=== PATIENT | female | born 1965 | race Caucasian/White ===

== ENCOUNTER 2018-01-06 10:51 | Outpatient (REF) | payer MEDICAID, SELFPAY ==
--- NOTE | 2018-01-06 10:10 | PAPFT_PTH ---
PATIENT: Fara Kamara LOC: [facility] U#:[id number] AGE/SX: 52/F ROOM: RE01/06/[address]: Romina Laureano MD : [id number] BED: DIS: 01/06/2018 SPEC #: [id number] RECD: 01/06/18 12:49 STATUS: FLYNN REQ #: [id number] BRII: 01/06/18 10:[address]: Romina Laureano DEPT: [facility] Cytology RECD BY: Magdalena Dhaliwal ENTERED: 01/06/18 12:49 SP TYPE: PAPFT OTHR DR: Lexy Sparks MD Tissues: 1 - CX/ENDOCX FOR PAP SMEARS Procedures: PAP THIN PREP/UVM Screening HPV DNA PROBE Comments:
== END 2018-01-06 11:11 ==
LOC: LBN 10:51
PROVIDERS: PCP Family Medicine; Visit Provider Obstetrics & Gynecology
DX: Z12.4 Encounter for screening for malignant neoplasm of cervix (principal); Z11.51 Encounter for screening for human papillomavirus (HPV)
CPT/HCPCS: 88142; 87624

== ENCOUNTER 2018-09-02 08:43 | Outpatient (CLI) | payer MEDICAID, SELFPAY ==
[2018-09-02 13:12] LABS: ALT 31 U/L (12-78); AST 13 U/L (15-37); Albumin 3.7 g/dL (3.4-5.0); Alkaline Phosphatase 90 U/L (46-116); Anion Gap 10.2 mmol/L (3-11); BUN 10 mg/dL (7-18); Bilirubin, Total 0.4 mg/dL (0.2-1.0); CO2 26.8 mmol/L (21.0-32.0); CREATININE 0.98 mg/dL (0.55-1.02); Calcium 8.9 mg/dL (8.5-10.1); Chloride 104 mmol/L (98-107); Estimated GFR 58.92 (mL/min/1.73m2); Glucose 115 mg/dL (70-100); Magnesium 1.9 mg/dL (1.8-2.4); Potassium 4.1 mmol/L (3.5-5.1); Sodium 141 mmol/L (136-145); Total Protein 6.6 g/dL (6.4-8.2)
== END 2018-09-02 09:03 ==
PROVIDERS: PCP Family Medicine; Visit Provider Family Medicine
DX: K21.9 Gastro-esophageal reflux disease without esophagitis (principal)
CPT/HCPCS: 36415; 80053; 83735

== ENCOUNTER 2018-09-14 00:57 | Outpatient (CLI) | payer MEDICAID, SELFPAY ==
--- NOTE | 2018-09-14 11:57 | DI.MAMMO_ITS ---
SYMPTOM/DIAGNOSIS: SCREENING, Z12.31 MAMMOGRAMS: Mammograms were interpreted according to the usual protocol including computer analysis with CAD system, tomosynthesis and C view imaging. Comparison with prior examinations. Breast density B. No suspicious masses or microcalcifications are seen. There is no definite evidence of malignancy. IMPRESSION: Negative mammogram. Routine screening is recommended. Category I. MQSA ASSESSMENT OF FINDINGS: Negative. Category 1. Patient will receive a letter notifying them of these results. BI-RADS category B. There are scattered areas of fibroglandular density.
== END 2018-09-14 01:17 ==
PROVIDERS: PCP Family Medicine; Visit Provider Family Medicine
DX: Z12.31 Encounter for screening mammogram for malignant neoplasm of breast (principal)
CPT/HCPCS: 77063; 77067

== ENCOUNTER 2020-10-26 01:05 | Outpatient (CLI) | payer MEDICAID, SELFPAY ==
--- NOTE | 2020-10-26 07:45 | DI.MAMMO_ITS ---
Exam(s) MAMMO SCREENING EXAM: MAMMO SCREENING CLINICAL HISTORY: screening,z12.39 TECHNIQUE: Mammograms were interpreted according to the usual protocol including computer analysis w [employer] CAD system, tomosynthesis and C-view imaging. COMPARISON: 2011 through 2018 FINDINGS: The breasts are composed of scattered fibroglandular densities, Breast Density category B. No suspicious masses or suspicious microcalcifications are seen. No skin thickening or abnormal axillary lymph nodes are seen. There has been no significant change from prior exams. IMPRESSION: BI-RADS Category 1, Negative mammogram Yearly screening mammography is recommended. Breast Density - Category B, scattered fibroglandular densities. A negative radiographic report should not delay biopsy if a dominant or clinically suspicious mass is present. Up to ten percent of cancers are not identified on mammography. A negative report may reinforce clinical impression. Adenosis and dense breasts may obscure an underlying neoplasm. False positive reports average 6 to 10%. Patient will receive a letter notifying them of these results.
== END 2020-10-26 01:25 ==
PROVIDERS: PCP Family Medicine; Visit Provider Family Medicine
DX: Z12.31 Encounter for screening mammogram for malignant neoplasm of breast (principal)
CPT/HCPCS: 77063; 77067

== ENCOUNTER 2020-10-27 01:51 | Outpatient (CLI) | payer MEDICAID, SELFPAY ==
[2020-10-27 12:51] LABS: ALT 40 U/L (14-59); AST 18 U/L (15-37); Albumin 3.9 g/dL (3.4-5.0); Alkaline Phosphatase 90 U/L (46-116); BUN 8 mg/dL (7-18); Bilirubin, Total 0.5 mg/dL (0.2-1.0); CREATININE 0.9 mg/dL (0.55-1.02); Calcium 9.1 mg/dL (8.5-10.1); Calculated LDL 158 mg/dL (<100); Chloride 103 mmol/L (98-107); Cholesterol 229 mg/dL (<200); Glucose 109 mg/dL (74-106); HDL Cholesterol 39 mg/dL (40-60); Potassium 4.6 mmol/L (3.5-5.1); Sodium 139 mmol/L (136-145); TSH 1.85 uIU/mL (0.36-3.74); Total Protein 6.9 g/dL (6.4-8.2); Triglyceride 163 mg/dL (<150)
== END 2020-10-27 01:52 | disposition home or self-care (01) ==
LOC: LOS 01:51
PROVIDERS: PCP Family Medicine; Visit Provider Family Medicine
DX: R53.83 Other fatigue (principal); E83.42 Hypomagnesemia; E66.9 Obesity, unspecified
CPT/HCPCS: 36415; 80053; 80061; 83735; 84443

== ENCOUNTER → 2021-10-09 01:00 | Outpatient (CLI) | payer MEDICAID, SELFPAY ==
--- NOTE | 2021-10-09 07:15 | DI.RAD_ITS ---
Exam(s) XR KNEE LT 3V AP,LAT,MARY EXAM: XR KNEE LT 3V AP,LAT,MARY CLINICAL HISTORY: LT KNEE PAIN, M25.562. TECHNIQUE: 2D digital imaging was performed. COMPARISON: MR MRI R LOWER JOINT WO CONT from 11/08/2013 CR XR KNEE RT 3V AP,LAT,MARY from 10/09/2021 FINDINGS: 3 views No evidence of fracture nor prominent joint effusion. There does appear to be some increased density in the quadriceps fat pad above the patella in behind the distal quadriceps tendon, possibly signifi cant. No abnormal density seen in the anterior intra-articular Hoffa fat pad No joint space narrowing. No osteochondral defects. No significant osseous lesions. IMPRESSION: Subtle findings as described above. DATA REPOSITORY: RADIATION DOSE DELIVERED:
--- NOTE | 2021-10-09 07:15 | DI.RAD_ITS ---
Exam(s) XR KNEE RT 3V AP,LAT,MARY EXAM: XR KNEE RT 3V AP,LAT,MARY CLINICAL HISTORY: RT KNEE PAIN, M25.5661. TECHNIQUE: 2D digital imaging was performed. COMPARISON: MR MRI R LOWER JOINT WO CONT from 11/08/2013 FINDINGS: 3 views Evidence of ACL surgery. No fracture but there does appear to be a small joint effusion. Degenerati ve changes noted in the medial lateral compartments. Bone density normal. IMPRESSION: Previous ACL surgery. Significant osteoarthritic degenerative changes DATA REPOSITORY: RADIATION DOSE DELIVERED:
== END ==
PROVIDERS: Visit Provider Nurse Practitioner Family
DX: M17.11 Unilateral primary osteoarthritis, right knee (principal); M25.562 Pain in left knee; M25.461 Effusion, right knee
CPT/HCPCS: 73562

== ENCOUNTER 2022-01-28 14:11 | Outpatient (CLI) | payer MEDICAID, SELFPAY ==
--- NOTE | 2022-01-28 13:45 | DI.RAD_ITS ---
Exam(s) XR LUMBAR SPINE AP, LAT EXAM: XR LUMBAR SPINE AP, LAT CLINICAL HISTORY: eval LBP and notable lordosis. TECHNIQUE: 2D digital imaging was performed. Five views. COMPARISON: No exams were available for comparison FINDINGS: BONES: No fracture or destructive lesion. Vertebral body heights are maintained. There are small end plate osteophytes. Facet hypertrophy identified at L4-5 and L5-S1.. DISKS: Intervertebral disc spaces are maintained. ALIGNMENT: Lumbar spinal alignment is within normal limits. SOFT TISSUE: Aortic calcification. IMPRESSION: Facet degenerative changes at L4-5 and L5-S1 DATA REPOSITORY: RADIATION DOSE DELIVERED:
== END 2022-01-28 14:12 | disposition home or self-care (01) ==
LOC: DIORS 14:12
PROVIDERS: PCP Nurse Practitioner Family; Referring Provider Nurse Practitioner Family; Visit Provider Student in an Organized Health Care Education/Training Program
DX: M54.59 Other low back pain (principal); M47.817 Spondylosis without myelopathy or radiculopathy, lumbosacral region; M40.47 Postural lordosis, lumbosacral region
CPT/HCPCS: 72100

== ENCOUNTER 2022-04-01 09:29 | Outpatient (CLI) | payer MEDICAID, SELFPAY ==
--- NOTE | 2022-04-01 07:45 | DI.RAD_ITS ---
Exam(s) XR PAIN CLINIC LUMBAR SP 2V EXAM: XR PAIN CLINIC LUMBAR SP 2V CLINICAL HISTORY: Dx: Lumbar Spondylosis TECHNIQUE: 2D and realtime digital imaging was performed. CONTRAST MATERIAL: Refer to procedure report. COMPARISON: No exams were available for comparison FINDINGS: Fluoroscopy was provided for Dr. Adan during the performance of a lumbar medial branch block. Please refer to the procedure report for complete details. Ka,r=26.3 mGy IMPRESSION:
[2022-04-01 09:56] VITALS: BP 149/98; PULSE 94; RESP 20; TEMP 36.6; O2SAT 96
--- NOTE | 2022-04-01 10:49 | PDOC.PAIN ---
Date of service: 04/01/22 Time of Service: 10:50 Pain Clinic Procedure Note Procedure Note Procedure Note: Lumbar/Sacral Medial Branch Blocks Fara Kamara has been referred to the [facility] for lumbar/sacral medial branch blocks. Pre-operative diagnosis: lumbar spondylosis Post-operative diagnosis: same as above COMMENTS: patient was evaluated by Dr Berger in clinic for chronic axial back pain, facet mediated with positive lumbar extension reproducing patient's symptoms. Patient was interviewed and the medical record reviewed. There were no medical, pharmacologic, radiographic or other structural contraindications to attempting fluoroscopically guided local anesthetic lumbar/sacral medial branch blocks. Risks and expected side effects as well as potential benefit of the procedure were reviewed and voiced concerns addressed. The printed consent form was signed and witnessed. Standard time-out procedure was performed. Patient was placed in the prone position on the fluoroscopy table and automated blood pressure cuff and pulse oximeter applied. The skin entry points for approaching the anatomic target points of the segmental medial branches of bilateral L3, L4, L5-DR were identified with anfluoroscopy and marked. Following thorough Chlorhexadine preparation of the skin and draping and 1% lidocaine infiltration of the skin entry points and subcutaneous tissues, a 22 gauge 5 spinal needle was placed under fluoroscopic guidance down on to the target point for each respective segmental medial branch.Position was confirmed in A/P, oblique and lateral views with 0.25ml of omnipaque 240. Coult be this method 0.5ml 0.5% Bupivacaine was injected. Vital signs were stable throughout the procedure and were as recorded in the docflowsheet by the nursing staff. Follow up plans and appointments were discussed and was instructed to keep careful note of how the usual pain was modified by these injections. Specifically was asked to keep a pain diary for the next 24 hours using a numeric pain scale of 0-10 and report these results at the follow-up visit. Post procedure instruction was given as documented in the nursing documentation and having met discharge criteria. Patient was discharged from the [facility]. Based on the medial branches blocked today, if the patient has adequate relief and we are able to proceed to radiofrequency ablation, the treatment should result in the denervation of the bilateral L4/5 and L5/S1. We would expect to denervate a total of 4 facets during the radiofrequency ablation. COMMENTS: patient tolerated procedure well. Pre-procedure pain level 10/10. Post-procedure pain level 4/10. Ephraim Adan MD Pain Management CC: Shelly Velazquez NP, Ibrahima
[2022-04-01] MEDS: Omnipaque 240 MG/ML 50 ML BTL IJ (11:23)
[2022-04-01] MEDS: Bupivacaine 0.5% Pres-Free 10 ML VIAL IJ (11:24)
[2022-04-01 11:25] VITALS: BP 148/98; PULSE 91; RESP 14; O2SAT 97
== END 2022-04-01 09:30 | disposition home or self-care (01) ==
LOC: PC 09:29
PROVIDERS: PCP Nurse Practitioner Family; Visit Provider Internal Medicine
DX: M47.816 Spondylosis without myelopathy or radiculopathy, lumbar region (principal)
CPT/HCPCS: 64493; 64494; 72100; Q9967

== ENCOUNTER 2022-05-14 01:16 | Outpatient (CLI) | payer MEDICAID, SELFPAY ==
--- NOTE | 2022-05-14 07:45 | DI.MRI_ITS ---
Exam(s) MR LUMBAR SPINE WO EXAM: MR LUMBAR SPINE WO CLINICAL HISTORY: Low back pain of unknown origin, Normal neuro,m54.50. TECHNIQUE: Multiplanar multisequence MRI of the Lumbar spine was performed. COMPARISON: CR XR LUMBAR SPINE AP, LAT from 01/28/2022 FINDINGS: Bones: The last intervertebral disc space is designated the L5/S1 level for the numbering purpose of this examination. The vertebral body heights are well maintained. Alignment is satisfactory. The si gnal characteristics are unremarkable. Cord: The conus tip ends at the T12 level. It is of normal size and signal intensity. T12-L1: No disc herniations or bulges are present. No central spinal canal or neural foraminal stenos is. L1-2: No disc herniations or bulges are present. No central spinal canal or neural foraminal stenosis . L2-3: No disc herniations or bulges are present. No central spinal canal or neural foraminal stenosis . L3-4: No disc herniations or bulges are present. No central spinal canal or neural foraminal stenosis . L4-5: No disc herniations or bulges are present. No central spinal canal or neural foraminal stenosis .There are degenerative changes of the facets. L5-S1: No disc herniations or bulges are present. No central spinal canal or neural foraminal stenosi s.There are degenerative changes of the facets. Soft tissues: The visualized SI joints and sacrum are well maintained. The paraspinal soft tissues ar e unremarkable. IMPRESSION: Degenerative changes in the lumbar spine but no evidence of central spinal canal or neural foraminal stenosis. DATA REPOSITORY:
== END 2022-05-14 01:36 ==
LOC: DI 01:16
PROVIDERS: PCP Nurse Practitioner Family; Visit Provider Preventive Medicine Occupational Medicine
DX: M54.59 Other low back pain (principal); M47.817 Spondylosis without myelopathy or radiculopathy, lumbosacral region
CPT/HCPCS: 72148

== ENCOUNTER 2022-09-16 07:39 | Outpatient (CLI) | payer MEDICAID, SELFPAY ==
--- NOTE | 2022-09-16 07:00 | DI.RAD_ITS ---
Exam(s) XR PAIN CLINIC LUMBAR SP 2V EXAM: XR PAIN CLINIC LUMBAR SP 2V CLINICAL HISTORY: Dx: Low back pain TECHNIQUE: 2D and realtime digital imaging was performed. CONTRAST MATERIAL: Refer to procedure report. COMPARISON: No exams were available for comparison FINDINGS: Fluoroscopy was provided for Dr. Berger during the performance of a lumbar facet injection. Please re mary to the procedure report for complete details. Ka,r=83.4 mGy IMPRESSION:
[2022-09-16 07:51] VITALS: BP 152/92; PULSE 89; RESP 20; TEMP 36.6; O2SAT 95
[2022-09-16 08:34] VITALS: BP 157/98; PULSE 87; RESP 18; O2SAT 98
[2022-09-16] MEDS: Omnipaque 240 MG/ML 50 ML BTL IJ (08:49)
[2022-09-16] MEDS: methylPREDNISolone ACETATE 40 MG/ML VIAL IJ (08:49)
--- NOTE | 2022-09-16 08:52 | PDOC.PAIN_ITS ---
Date of service: 09/16/22 Time of Service: 08:52 Pain Managment Procedure Note Procedure Note Procedure Note: PROCEDURE NOTE Bilateral Lumbar Intra-articular facet joint injections Date of Service: September 16, 2022 Patient: Fara Kamara Provider: Jonny Berger DO, MPH Fara Kamara has been referred to the [facility] for lumbar intra- articular facet joint injections. Pre-operative diagnosis: Lumbar Spondylosis without Myelopathy Post-operative diagnosis: Same Pre-procedure pain: VAS= 8/10 COMMENTS: I previously evaluated her in the office. She previously had LMBBs with little relief at the time of the procedure. I am hoping that an alternative approach improves her relief with this procedure. Fara? was interviewed and the medical records were reviewed. There were no medical, pharmacologic, radiographic or other structural contraindications to attempting fluoroscopically guided local anesthetic lumbar intra-articular facet joint injections. Risks and potential side effects were discussed. I also discussed the potential benefit(s) of the procedure with Fara, and voiced concerns were addressed. After Fara was completely informed about the procedure, the printed consent form was signed. A standard time-out procedure was performed. Fara was placed in the prone position on the fluoroscopy table. Automated blood pressure cuff and pulse oximeter were applied. The skin entry points for approaching the anatomic target points of the facet joints of the bilateral L4- L5 and L5-S1 were identified with fluoroscopy and marked. The skin at the t arget site area was thoroughly prepared with Chlorhexadine. The skin was then draped. Next, a 25 gauge 3.5 spinal needle was placed under fluoroscopic guidance down on to the target point (the articular pillar) for each respective segmental medial branch. Position was confirmed in A/P and lateral views. Aspiration revealed no blood or clear fluid. Next, 0.25ml of omnipaque 240 was injected at each level revealing a facet arthrogram. No contrast following a vascular or neural pattern was visualized under continuous fluoroscopy. Next, 0.5 ml of preservative-free Depomedrol (40 mg/cc), followed by 0.5 cc of 1% Lidocaine was injected at each joint. There was no unusual discomfort expressed by Fara. The needles were withdrawn without difficulty. (48 mls of Omnipaque was wasted) Fara was observed and was without hemodynamic, neurologic, or allergic reactions.? Fluoroscopic images were digitally archived. Provacative testing using the Modified Rankin's facet loading test- Left side Right Side Directly before the block VAS (0-10) = 8/10 VAS (0-10) = 8/10 Five minutes after the block VAS (0-10) = 4/10 VAS (0-10) = 4/10 Percentage relief obtained with this diagnostic block 75% 75% Any improved physical functioning directly after the blocks? Able to move her back much more easily Follow up plans and appointments were discussed with Fara. Fara was instructed to keep careful note of how the usual pain was modified by these injections. Specifically, to keep a pain diary for the next 4 hours using a numeric pain scale of 0-10 and report these results. Post procedure instruction was given as documented in the nursing documentation and having met discharge criteria, the patient was [facility] from the [facility]. Based on the facet injections today, if they patient has adequate relief and we repeat this procedure if needed in the future, or contemplate radiofrequency ablation. COMMENTS: No apparent complications. Post-procedure pain: VAS= 4/10 Fara will call back with 0-4 hour post-procedure pain scores. I personally performed the entire procedure. JONNY BERGER DO, MPH ABPM&R-subspecialty board certification in Pain Medicine [facility]
== END 2022-09-16 07:40 | disposition home or self-care (01) ==
LOC: PC 07:40
PROVIDERS: PCP Nurse Practitioner Family; Visit Provider Preventive Medicine Occupational Medicine
DX: M47.816 Spondylosis without myelopathy or radiculopathy, lumbar region (principal)
CPT/HCPCS: 64493; 64494; 72100; J1030; Q9967

== ENCOUNTER → 2023-04-07 00:51 | Outpatient (CLI) | payer MEDICAID, SELFPAY ==
--- NOTE | 2023-04-07 11:14 | DI.RAD_ITS ---
Exam(s) XR HIP LT COMPLETE AP PELVIS EXAM: XR HIP LT COMPLETE AP PELVIS CLINICAL HISTORY: severe LT HIP PAIN, M25.552. TECHNIQUE: 2D digital imaging was performed. Two views. COMPARISON: No exams were available for comparison FINDINGS: Exam is somewhat limited by patient body habitus. BONES: No acute fracture is present. No bony destructive lesion is seen. JOINTS: No dislocation present. The hip joint spaces are maintained. There is mild acetabular spurr ing on the left. SOFT TISSUE: Normal. IMPRESSION: Minimal degenerative changes left hip. DATA REPOSITORY: RADIATION DOSE DELIVERED:
== END ==
PROVIDERS: PCP Nurse Practitioner Family; Visit Provider Nurse Practitioner Family
DX: M25.552 Pain in left hip (principal)
CPT/HCPCS: 73502

== ENCOUNTER 2023-04-07 15:13 | Outpatient (CLI) | payer MEDICAID, SELFPAY ==
[2023-04-07 11:55] LABS: ESR 3 mm/hr (0-30)
[2023-04-07 13:15] LABS: ALT 47 U/L (14-59); AST 19 U/L (15-37); Alkaline Phosphatase 82 U/L (46-116); Anion Gap 8.3 mmol/L (3-11); BUN 12 mg/dL (7-18); Bilirubin, Total 0.6 mg/dL (0.2-1.0); CO2 29.7 mmol/L (21.0-32.0); CREATININE 0.9 mg/dL (0.55-1.02); Calcium 9.6 mg/dL (8.5-10.1); Calculated LDL 153 mg/dL (<100); Chloride 102 mmol/L (98-107); Cholesterol 240 mg/dL (<200); Estimated GFR 73.64 (mL/min/1.73m2); Glucose 109 mg/dL (74-106); HDL Cholesterol 40 mg/dL (40-60); Potassium 4.4 mmol/L (3.5-5.1); Sodium 140 mmol/L (136-145); Total Protein 7.6 g/dL (6.4-8.2); Triglyceride 236 mg/dL (<150)
[2023-04-07 13:27] LABS: C-Reactive Protein 0.58 mg/dL (<or=0.5)
[2023-04-07 19:43] LABS: Hemoglobin A1C 5.3 % (<5.7)
[2023-04-08 10:40] LABS: Lyme Ab w Rflx to Lyme Confirm Negative (Negative)
[2023-04-09 23:00] LABS: Anaplasma phagocytophilum Negative (Negative); B. miyamotoi PCR Negative (Negative); Babesia divergens/MO-1 Negative (Negative); Babesia duncani Negative (Negative); Babesia microti Negative (Negative); Ehrlichia chaffeensis Negative (Negative); Ehrlichia ewingii/canis Negative (Negative); Ehrlichia muris eauclairensis Negative (Negative)
== END 2023-04-07 15:14 | disposition home or self-care (01) ==
LOC: LBO 15:16
PROVIDERS: PCP Nurse Practitioner Family; Visit Provider Nurse Practitioner Family
DX: M25.59 Pain in other specified joint (principal); R79.89 Other specified abnormal findings of blood chemistry
CPT/HCPCS: 36415; 80053; 80061; 85652; 87798; 83036; 86140; 86618

== ENCOUNTER 2023-10-04 11:08 | Emergency (ER) | payer MEDICAID, SELFPAY ==
[2023-10-04 11:14] VITALS: BP 145/80; PULSE 97; RESP 18; TEMP 36.5; O2SAT 99
--- NOTE | 2023-10-04 11:45 | DI.CT_ITS ---
Exam(s) CT THORACIC LUMBAR SPINE WO EXAM: CT THORACIC LUMBAR SPINE WO CLINICAL HISTORY: fall, back pain. TECHNIQUE: Imaging Protocol: Axial computed tomography images with coronal and sagittal reformatted images were created and reviewed. CONTRAST MATERIAL: Intravenous: None COMPARISON: CR XR LUMBAR SPINE AP, LAT from 01/28/2022 MR MR LUMBAR SPINE WO from 05/14/2022 FINDINGS: THORACIC SPINAL COLUMN: Bones: There is an acute appearing compression fracture of T12 with approximately 50 percent height l oss. There approximately 4 mm retrolisthesis of the upper aspect of the posterior cortex which somew hat impresses upon the thecal sac. Fracture does not appear to extend into the pedicles and laminae. No facet malalignment at this level nor elsewhere in the thoracic spinal column. No other thoracic fractures evident. LUMBOSACRAL SPINAL COLUMN: There are no fractures of the lumbar vertebrae. No listhesis. Mild disc space narrowing at L3-4 not ed. Facet arthropathy evident in lower lumbar spine levels. No facet malalignment.. IMPRESSION: There is a 50 percent acute compression fracture of T12 vertebral body with 4 mm retropulsion of the superior aspect resulting in some compression of the thecal sac at this level. There are no fractures of the lumbar vertebrae. RADIATION DOSE DELIVERED: Total DLP DATA REPOSITORY: All CT scans at this facility are submitted to the National Radiology Data Registry (NRDR) Dose Index Registry (DIR) with the [employer] ([employer]). RADIATION OPTIMIZATION: All CT scans at this facility use at least one of these dose optimization te chniques: automated exposure control; mA and/or kV adjustment per patient size (includes targeted exa ms where dose is matched to clinical indication); or iterative reconstruction.
[2023-10-04] MEDS: Ondansetron O.D.T. 4 MG TABEF PO (12:00)
[2023-10-04] MEDS: Acetaminophen 500 MG TAB 1000 MG PO (12:00)
[2023-10-04] MEDS: HYDROmorphone 2 MG/ML SYR 1 MG IM (12:00)
--- NOTE | 2023-10-04 14:10 | DI.VRAD_ITS ---
PROCEDURE INFORMATION: Exam: CT Thoracic Spine Without Contrast Exam date and time: 10/04/2023 12:41 PM Age: 58 years old Clinical indication: Other: Fall, back pain TECHNIQUE: Imaging protocol: Computed tomography of the thoracic spine without contrast. Radiation optimization: All CT scans at this facility use at least one of these dose optimization techniques: automated exposure control; mA and/or kV adjustment per patient size (includes targeted exams where dose is matched to clinical indication); or iterative reconstruction. COMPARISON: MR LUMBAR SPINE WO 05/14/2022 1:46 PM FINDINGS: Bones/joints: Narrowing of the C6-C7 disc space with anterior and posterior osteophyte disc complexes causing mild bony canal stenosis. There is an acute T12 moderate compression deformity with estimated loss of height of 45%. There is mild retropulsion by 3 mm of the upper half of the T12 vertebral body. Soft tissues: Unremarkable. IMPRESSION: Moderate compression deformity of the T12 vertebral body with mild retropulsion. PROCEDURE INFORMATION: Exam: CT Lumbar Spine Without Contrast Exam date and time: 10/04/2023 12:41 PM Age: 58 years old Clinical indication: Other: Fall, back pain TECHNIQUE: Imaging protocol: Computed tomography of the lumbar spine without contrast. Radiation optimization: All CT scans at this facility use at least one of these dose optimization techniques: automated exposure control; mA and/or kV adjustment per patient size (includes targeted exams where dose is matched to clinical indication); or iterative reconstruction. COMPARISON: MR LUMBAR SPINE WO 05/14/2022 1:46 PM FINDINGS: Bones/joints: Mild degenerative disease of bilateral sacroiliac joints. Mild curvature of the lumbar spine convex to the right bilateral severe L4-L5 facet joint arthropathy with mild posterior disc bulge causing mild thecal sac compression. No acute fracture. No spondylolisthesis. Vasculature: There are vascular calcifications. Soft tissues: Unremarkable. IMPRESSION: No acute findings. Dictated and Authenticated by: Jarrett Marcus MD. Ordering:RAMILA Nichols MD
[2023-10-04 14:21] VITALS: BP 135/67; PULSE 83; RESP 18; TEMP 36.3; O2SAT 97
--- NOTE | 2023-10-04 15:23 | ED.GENADUL_ITS ---
Discharge Plan Disposition Patient Disposition: Home Condition: Stable Discharge Details Clinical Impression: Closed T12 fracture Primary Care Provider: Ibrahima Perez ED Provider: Magdalena Weiss Home Meds and New Rx's Prescriptions: New oxycodone 5 mg capsule 5 mg PO Q8H PRNQty: 14 0RF Continued bupropion HCl 150 mg tablet sustained-release 12 hr 150 - 300 mg PO BID Qty: 270 3RF Rx Instructions: take 2 tablets in am and one tablet pm famotidine [Pepcid] 20 mg tablet 20 mg PO BID Qty: 180 2RF fexofenadine 180 mg tablet 180 mg PO DAILY Qty: 90 4RF omeprazole 40 mg capsule,delayed release(DR/EC) 40 mg PO DAILY Qty: 90 3RF tramadol 50 mg tablet 50 mg PO QHS PRN (Reason: pain) Qty: 7 0RF montelukast [Singulair] 10 mg tablet 10 mg PO DAILY Qty: 90 1RF olopatadine 0.1 % drops See Rx Instructions .ROUTE .COMPLEX Qty: 5 0RF Dose Instruction: INSTILL 1 DROP IN AFFECTED EYE(S) TWICE DAILY NEEDED FOR ALLERGIC CONJUNCTIVITIS Rx Instructions: INSTILL 1 DROP IN AFFECTED EYE(S) TWICE DAILY NEEDED FOR ALLERGIC CONJUNCTIVITIS Discharge Instructions Additional Instructions: Weightbearing as tolerated, use your walker for assistance No lifting greater than 5 pounds, you will likely need physical therapy, I recommend a referral once you are feeling some mild improvement Take Tylenol 650 every 4-6 hours Take Motrin if you are able to 400 mg every 8 hours with food Take the oxycodone sparingly this is addictive and should not be combined with alcohol, do not operate your vehicle for 8 hours after taking this medication Follow-up with your PCP next week for reassessment and return earlier should you have new or worsening complaints including changes in bowel or bladder, strength or sensation change or worsening pain Stand Alone Forms: Work Release Referrals: Ibrahima Perez, MACHINE INSPECTOR [Primary Care Provider] - Discharge Data Discharge Date/Time-TO BE ENTERED AT DEPARTURE: 10/04/23 16:02 HPI General Date/Time Provider Initiated Documentation: 10/04/23 11:25 . HPI Narrative: 58-year-old female past medical history of chronic back pain presents with report of right knee giving out, and falling to the ground landing on her buttocks. Denies any head injury or neck pain. States she was able to stand up and continue walking but has had discomfort since that time. She states if she tries to move or get out of bed the pain is excruciating in her lower back. She denies any changes in bowel or bladder strength or sensation changes. Denies history of coagulopathy or abdominal pain. Ongoing issues with her right knee denies any significant change in pain today. States it typically feels quite weak. Related Data Home Medications ?Medication ?Instructions ?Recorded ?Confirmed bupropion HCl 150 mg tablet,12 hr 150 - 300 mg (1 - 2 x 150 mg) PO 09/25/22 0 10/04/23 sustained-release BID #270 tab-caps famotidine 20 mg tablet (Pepcid) 20 mg PO BID #180 tabs 09/25/22 10/04/23 fexofenadine 180 mg tablet 180 mg PO DAILY #90 tab-caps 09/25/22 10/04/23 omeprazole 40 mg capsule,delayed 40 mg PO DAILY #90 tab-caps 09/25/22 10/04/23 release tramadol 50 mg tablet 50 mg PO QHS PRN pain #7 tabs 06/25/23 10/04/23 montelukast 10 mg tablet 10 mg PO DAILY #90 tab-caps 08/13/23 10/04/23 (Singulair) olopatadine 0.1 % eye drops See Rx Instructions .Route 08/26/23 10/04/23 .COMPLEX #5 mL oxycodone 5 mg capsule 5 mg PO Q8H PRN #14 caps 10/04/23 Previous Rx's ?Medication ?Instructions ?Recorded bupropion HCl 150 mg tablet,12 hr 150 - 300 mg (1 - 2 x 150 mg) PO 09/25/22 sustained-release BID #270 tab-caps famotidine 20 mg tablet (Pepcid) 20 mg PO BID #180 tabs 09/25/22 fexofenadine 180 mg tablet 180 mg PO DAILY #90 tab-caps 09/25/22 omeprazole 40 mg capsule,delayed 40 mg PO DAILY #90 tab-caps 09/25/22 release tramadol 50 mg tablet 50 mg PO QHS PRN pain #7 tabs 06/25/23 montelukast 10 mg tablet 10 mg PO DAILY #90 tab-caps 08/13/23 (Singulair) olopatadine 0.1 % eye drops See Rx Instructions .Route 08/26/23 .COMPLEX #5 mL oxycodone 5 mg capsule 5 mg PO Q8H PRN #14 caps 10/04/23 Allergies Allergy/AdvReac Type Severity Reaction Status Date / Time kiwi Allergy Intermediate Throat Verified 10/04/23 11:18 tightens onion Allergy Intermediate Hives with Verified 10/04/23 11:18 raw onions only diphenhydramine HCl (From Allergy Unknown hives Verified 10/04/23 11:18 Benadryl) codeine AdvReac Nausea Verified 10/04/23 11:18 Environmental Allergies Allergy Mild sneezing Uncoded 10/04/23 11:18 General Stated Complaint: Nk/Back Pain DEL: 4 Exam Narrative Exam Narrative: Alert and oriented 58-year-old female, uncomfortable appearing, seated in the room on assessment, no visible signs of head trauma, pupils equal round reactive to light and accommodation, no cervical or paraspinal muscle tenderness or visible signs of neck trauma, no upper thoracic pain, no visible signs of chest trauma, lungs clear to auscultation no respiratory distress, cardiac rate rhythm regular, distal pulses intact, no abdominal tenderness, no CVA tenderness, lower thoracic and lumbar spine tenderness with guarding in the area, no visible evidence of trauma, no ecchymosis, GCS 15, alert and oriented x 4, strength and sensation intact all 4 lower extremities patient is ambulatory with antalgic gait, negative Babinski, Course Vital Signs Vital signs: Vital Signs Temperature 36.5 C 10/04/23 11:14 Pulse 97 H 10/04/23 11:14 Respiratory Rate 18 10/04/23 11:14 Blood Pressure 145/80 H 10/04/23 11:14 Pulse Oximetry 99 10/04/23 11:14 Temperature 36.3 C L 10/04/23 14:21 Temperature Source Skin 10/04/23 14:21 Pulse 83 10/04/23 14:21 Respiratory Rate 18 10/04/23 14:21 Respiratory Effort Normal, Non-Labored 10/04/23 11:17 Blood Pressure 135/67 10/04/23 14:21 Blood Pressure Mean 89 10/04/23 14:21 Blood Pressure Position Sitting 10/04/23 14:21 Pulse Oximetry 97 10/04/23 14:21 Oxygen Delivery Method Room Air 10/04/23 14:21 Oxygen Flow Rate 0 10/04/23 14:21 Pain Level 3 10/04/23 14:21 Medical Decision Making 58-year-old female with fall which was mechanical in nature yesterday with back pain. Given age and medical comorbidities as well as BMI, I did order CT thoracic and lumbar spine, no head trauma or cervical spine tenderness appreciated and patient is fully alert and oriented and capable of endorsing pain. CT thoracic spine shows anterior compression fraction to T12 with retropulsion 3 mm. Case is discussed with Dr. Feliz neurosurgery at [facility] and recommendation for 6-month follow-up with standing lumbar spine films prior to reassessment at [facility] in [address] Feliz also recommended ordering a CT cervical spine, however given patient's clinical exam findings, normal mentation, and refusal of C-spine CT at this time secondary to longevity of stay, patient declines CT imaging of her cervical spine at this time. She will need follow-up next week for reassessment regardless and we can certainly order additional imaging at that time as necessary. Again she will need repeat standing lumbar spine films in 6 weeks prior to her appointment at [facility]. She is placed on care management list for neurosurgery appointment and referral at [facility] in 6 weeks for reassessment of T12 fracture. Patient was given a walker and is ambulatory with steady gait. She was also supplied with oxycodone which she likely will need more pain medication for symptom control, however 14 tablets were supplied at this time. Patient is aware regarding risk of addiction associated with these medications and inability to drive for 8 hours after taking these meds. She is neurologically intact at time of reassessment and discharged home in care of friend. She has a walker for supportive care and feels she will be safe at home Quality:SDOH Health Related Social Needs: No Data to Display PFSH All Active Problems (Updated 10/04/23 @ 15:39 by MARYELLEN Lowery) Closed T12 fracture (Acute) Left hip pain (Acute) Arthralgia (Acute) Sleep apnea (Acute) Left shoulder pain (Acute) Lumbosacral spondylosis without myelopathy (Acute) Traumatic arthritis of right knee (Acute) Internal derangement of left knee (Acute) Facet arthropathy, lumbar (Acute) Low back pain (Acute) Bilateral knee pain (Acute) High blood sugar (Acute) High serum low density lipoprotein (LDL) cholesterol (Acute) Cyst of breast (Acute 07/29/11) Deviated nasal septum (Acute 09/20/13) History of arthroscopy of knee (Acute) Hypertrophy of nasal turbinates (Acute 09/20/13) Sialoadenitis (Acute 10/18/13) Gastro-esophageal reflux (Acute) Depression (Acute) Allergic rhinitis (Acute 10/27/13) Allergic fungal sinusitis (Acute 04/12/13) allergy injections Medical History (Updated 10/04/23 @ 15:39 by MARYELLEN Lowery) Snoring Surgical History H/O reconstruction of anterior cruciate ligament tear 01/03/14 LR- RIGHT KNEE; 03/27/15 DR. JARVIS;RIGHT KNEE Family History Mother Alcohol abuse Depression Stroke Father Alcohol abuse Brother No problems noted. Brother Skin cancer Alcohol abuse Daughter No problems noted. 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[employer] Pets and animals: No Sexually active: No Do you think of yourself as: straight/heterosexual Current gender identity: female What is your relationship status?: How often do you talk on the phone with friends or family?: three or more times per week How often do you get together with friends or relatives?: once per week Panel score (0-1 are the most socially isolated patients): 1 What type of physical activity do you participate in: walking Frequency: 1-2 times per week Fina/Druze: No preference Special fina needs: No Seatbelt use: always Helmet use: Yes Helmet use: always Drive intox or ride w/intox shag truck driver: No
[2023-10-04 16:08] VITALS: BP 162/68; PULSE 98; RESP 16; TEMP 36.8; O2SAT 98
--- NOTE | 2023-10-04 16:47 | NUR.NOTE ---
Referral given to Care Management to assist Pt in obtaining an appointment with NeuroSurgery in [facility] in 6 weeks.
== END 2023-10-04 16:02 | disposition home or self-care (01) ==
PROVIDERS: Emergency Provider Physician Assistant; PCP Nurse Practitioner Family
DX: S22.080A Wedge compression fracture of T11-T12 vertebra, initial encounter for closed fracture (principal); W18.30XA Fall on same level, unspecified, initial encounter; Y92.002 Bathroom of unspecified non-institutional (private) residence as the place of occurrence of the external cause
CPT/HCPCS: 99284; 72128; 72131; 99283; J1170

== ENCOUNTER 2023-11-20 02:11 | Outpatient (CLI) | payer MEDICAID, SELFPAY ==
--- NOTE | 2023-11-20 07:30 | DI.DEXA_ITS ---
Exam(s) XR DEXA BONE DENSITY W/WO AMAN EXAM: XR DEXA BONE DENSITY W/WO AMAN CLINICAL HISTORY: T12 compression fracture,SCREENING FOR OSTEOPOROSIS IN POSTMENOPAUSAL STATU TECHNIQUE: Routine DEXA evaluation of the lumbar spine, hip, or forearm. COMPARISON: MR MR LUMBAR SPINE WO from 05/14/2022 XR PAIN CLINIC LUMBAR SP 2V from 09/16/2022 FINDINGS: Performed on a Hologic unit. Lateral image: There is a compression fracture of T12 noted. This was not evident on prior lumbar sp ine MRI of 05/14/2022. It was seen as an acute fracture on lumbar spine CT scan of 10/04/2023. Lumbar Spine total T-score: -1.4 Hip total T-score:0.1 Independent reading at the level of the femoral neck yields T-score of -1.4 Forearm total T-score: -0.6 IMPRESSION: Bone mineral density measures in the osteopenia range for lumbar spine and hip. Fracture risk is mod erate. Bone mineral density measures in the normal range for the wrist-forearm bones. Note: Any spine fracture indicates 5x risk for subsequent spine fracture and 2x risk for subsequent h ip fracture. World Health Organization criteria for BMD interpretation classify patients: Normal...... T- Score at or above -1.0 Osteopenic... T- Score between -1.0 and -2.5 Osteoporosis... T-Score at or below -2.5
== END 2023-11-20 02:31 ==
LOC: DI 02:11
PROVIDERS: PCP Nurse Practitioner Family; Visit Provider Nurse Practitioner Family
DX: Z78.0 Asymptomatic menopausal state (principal); M85.89 Other specified disorders of bone density and structure, multiple sites; Z13.820 Encounter for screening for osteoporosis
CPT/HCPCS: 77080

== ENCOUNTER 2024-07-05 09:56 | Outpatient (CLI) | payer MEDICAID, SELFPAY ==
--- NOTE | 2024-07-05 09:30 | DI.RAD_ITS ---
Exam(s) XR KNEE RT 2V AP,LAT XR STANDING ALIGNMENT EXAM: XR STANDING ALIGNMENT and XR knee RT 2 V CLINICAL HISTORY: right knee OA. TECHNIQUE: 2D digital imaging was performed. Six images were obtained. COMPARISON: CR XR KNEE LT 3V AP,LAT,MARY from 10/09/2021 CR XR KNEE RT 3V AP,LAT,MARY from 10/09/2021 FINDINGS: BONES: The hips are not well visualized due to the patient's body habitus. In the right hip, there a gain seen postsurgical changes of a prior ACL repair. Moderate degenerative changes are seen in the femoral tibial joints, medial greater than lateral. Dystrophic calcifications are seen adjacent to t he medial femoral condyle. There is a small joint effusion. There is an old well corticated osseous density anterior to the patella. In the left knee, there are mild degenerative changes present. Th e ankles are well maintained.There is no significant leg length discrepancy. SOFT TISSUE: Normal. IMPRESSION: Osteoarthritis of the knees, right greater than left. DATA REPOSITORY: RADIATION DOSE DELIVERED:
== END 2024-07-05 09:57 | disposition home or self-care (01) ==
LOC: DIORS 09:56
PROVIDERS: PCP Nurse Practitioner Family; Visit Provider Student in an Organized Health Care Education/Training Program
DX: M12.561 Traumatic arthropathy, right knee (principal); M17.11 Unilateral primary osteoarthritis, right knee; M17.12 Unilateral primary osteoarthritis, left knee
CPT/HCPCS: 73560; 77073

== ENCOUNTER 2025-01-11 10:36 | Outpatient (CLI) | payer MEDICAID, SELFPAY ==
--- NOTE | 2025-01-11 10:30 | RT.EKG_ITS ---
APPROVED REPORT Exam: Resting ECG Reason for Exam: Pre op for RTKA Patient Location: O HR:76 bpm ECG Measurements Heart Rate 76 AXIS IA 175 P 62 QRSd 107 QRS 75 QT 401 T 73 QTc 451 Conclusion Sinus rhythm...normal P axis, V-rate 50- 99
== END 2025-01-11 10:37 | disposition home or self-care (01) ==
LOC: DI.CM 10:37
PROVIDERS: PCP Nurse Practitioner Family; Visit Provider Nurse Practitioner Family
DX: Z01.818 Encounter for other preprocedural examination (principal)
CPT/HCPCS: 93010

== ENCOUNTER → 2025-01-11 11:42 | Outpatient (CLI) | payer MEDICAID, SELFPAY ==
--- NOTE | 2025-01-11 12:01 | DI.RAD_ITS ---
Exam(s) XR SHOULDER LT COMPLETE 2+V EXAM: XR SHOULDER LT COMPLETE 2+V CLINICAL HISTORY: increasing pain, LT SHOULDER PAIN, M25.512. TECHNIQUE: 2D digital imaging was performed. Four views. COMPARISON: No exams were available for comparison FINDINGS: BONES: No acute fracture is present. No bony destructive lesion is seen. JOINTS: No dislocation present. Glenohumeral joint space is maintained. There is mild spurring at the inferior glenoid and humeral head. There is minimal spurring at the acromioclavicular joint. SOFT TISSUE: Normal. IMPRESSION: Mild degenerative changes. No acute abnormality. DATA REPOSITORY: RADIATION DOSE DELIVERED:
== END ==
LOC: DI 11:43
PROVIDERS: PCP Nurse Practitioner Family; Visit Provider Nurse Practitioner Family
DX: M25.512 Pain in left shoulder (principal); M19.012 Primary osteoarthritis, left shoulder
CPT/HCPCS: 73030

== ENCOUNTER 2025-01-28 02:00 | Outpatient (CLI) | payer MEDICAID, SELFPAY ==
[2025-01-28 12:54] LABS: HCT 42.4 % (36.0-46.0); HGB 14.0 g/dL (11.2-15.7); MCH 29.8 pg (27.0-33.0); MCHC 33.0 % (32.0-36.0); MCV 90 fL (80-95); MPV 11.7 fL (8.0-11.0); Platelet Count 285 10^3/uL (130-400); RBC 4.70 10^6/uL (3.93-5.22); RDW 13.5 % (11.7-14.6); RDW-SD 45.1 fL; WBC 7.69 10^3/uL (4.4-10.8)
[2025-01-28 13:12] LABS: Anion Gap 7.2 mmol/L (3-11); BUN 11 mg/dL (9-23); CO2 28.8 mmol/L (20.0-31.0); Calcium 9.0 mg/dL (8.3-10.6); Chloride 105 mmol/L (98-107); Glucose 85 mg/dL (74-106); Potassium 3.9 mmol/L (3.5-5.1); Sodium 141 mmol/L (136-145)
== END 2025-01-28 02:01 | disposition home or self-care (01) ==
LOC: LBO 02:00 → LBN 12:40
PROVIDERS: PCP Nurse Practitioner Family; Visit Provider Student in an Organized Health Care Education/Training Program
DX: M12.561 Traumatic arthropathy, right knee (principal); Z01.818 Encounter for other preprocedural examination
CPT/HCPCS: 80048; 85027

== ENCOUNTER 2025-02-01 09:53 | Day surgery (SDC) | payer MEDICAID, SELFPAY ==
[2025-02-01] VITALS (37 sets, daily range): BP systolic 102–191; BP diastolic 60–170; PULSE 72–82; RESP 11–26; TEMP 36.3–36.9; O2SAT 90–98; BMI 45.1
--- NOTE | 2025-02-01 06:39 | W.ANESPRE ---
General Info Date of Service Date Performed: 02/01/25 Height: 5 ft 7 in Weight: 130.635 kg Body Mass Index (BMI): 45.1 Surgical Procedure: Operation Date: 02/01/25 12:25 Proposed Procedure Side Surgeon p Knee Total Arthroplasty Right Huey Thomson MD Meds Allergies and Home Medications Allergies Allergy/AdvReac Type Severity Reaction Status Date / Time kiwi Allergy Intermediate Throat Verified 02/01/25 10:06 tightens onion Allergy Intermediate Hives with Verified 02/01/25 10:06 raw onions only diphenhydramine HCl (From Allergy Unknown hives Verified 02/01/25 10:06 Benadryl) codeine AdvReac Nausea Verified 02/01/25 10:06 Environmental Allergies Allergy Mild sneezing Uncoded 02/01/25 10:06 Home Medication ?Medication ?Instructions ?Recorded fexofenadine 180 mg tablet 180 mg PO DAILY #90 tab-caps 02/27/24 olopatadine 0.1 % eye drops 1 drp ophthalmic (eye) BID PRN 08/13/24 allergic symptoms #5 mL montelukast 10 mg tablet 10 mg PO DAILY #90 tab-caps 09/03/24 (Singulair) famotidine 20 mg tablet (Pepcid) 20 mg PO BID #180 tabs 10/20/24 bupropion HCl 150 mg tablet,12 hr 150 - 300 mg (1 - 2 x 150 mg) PO 11/03/24 sustained-release BID #270 tab-caps omeprazole 40 mg capsule,delayed 40 mg PO DAILY #90 tab-caps 11/03/24 release semaglutide 2.4 mg/0.3 mL 2.4 mg (0.3 mL) subcut QWEEK #2 mL 11/03/24 subcutaneous syringe acetaminophen 500 mg tablet 1,000 mg (2 x 500 mg) PO Q8H PRN 02/01/25 pain #90 tabs aspirin 81 mg tablet,delayed 81 mg PO BID 30 days #60 tabs 02/01/25 release celecoxib 200 mg capsule (Celebrex) 200 mg PO BID PRN #60 caps 02/01/25 dexamethasone 4 mg tablet 4 mg PO DAILY #2 tabs 02/01/25 docusate sodium 100 mg capsule 100 mg PO BID #28 caps 02/01/25 (Colace) gabapentin 300 mg capsule 300 mg PO QHS #14 caps 02/01/25 oxycodone 5 mg tablet 5 mg PO Q4H PRN #18 tabs 02/01/25 Current Visit Medications: Current Medications Generic Name Dose Route Start Last Admin Trade Name Camilo PRN Reason Stop Dose Admin Acetaminophen 1,000 mg 02/01/25 06:00 Acetaminophen 500 Mg Tab PO 03/02/25 23:59 PREOP GRACIA Celecoxib 400 mg 02/01/25 06:00 Celecoxib 200 Mg Cap PO 03/02/25 23:59 PREOP GRACIA Gabapentin 300 mg 02/01/25 06:00 Gabapentin 300 Mg Cap PO 03/02/25 23:59 PREOP GRACIA Ringer's Solution 1,000 mls @ 80 mls/hr 02/01/25 06:00 IV 03/02/25 23:59 INFUSION GRACIA Cefazolin Sodium 3,000 mg/ 100 mls @ 200 mls/hr 02/01/25 06:00 Sodium Chloride IV 03/02/25 23:59 PREOP GRACIA Tranexamic Acid/Sodium Chloride 1,000 mg in 100 mls @ 600 mls/hr 02/01/25 06:00 IVPB 03/02/25 23:59 PREOP GRACIA Sodium Chloride 0 ml 02/01/25 06:00 Normal Saline Flush 10 Ml Syr IV 03/02/25 23:59 PRN PRN Sodium Chloride 0 ml 02/01/25 06:00 Normal Saline 10 Ml Vial IJ 03/02/25 23:59 DIRECTED PRN Sterile Water 0 ml 02/01/25 06:00 Water,Injection,Sterile 10 Ml Vial IJ 03/02/25 23:59 DIRECTED PRN PFSH Active Problems Active Problems: Problem Status Onset Code Asymmetrical sensorineural hearing loss Acute H90.3 Decreased hearing Acute H91.90 Difficulty losing weight Acute R68.89 Elevated blood pressure reading without diagnosis of hypertension Acute R03.0 Closed T12 fracture Acute S22.089A Left hip pain Acute M25.552 Arthralgia Acute M25.50 Sleep apnea Acute G47.30 Left shoulder pain Acute M25.512 Lumbosacral spondylosis without myelopathy Acute M47.817 Traumatic arthritis of right knee Acute M12.561 Internal derangement of left knee Acute M23.92 Facet arthropathy, lumbar Acute M47.816 Low back pain Acute M54.50 Bilateral knee pain Acute M25.561, M25.562 High blood sugar Acute R73.9 High serum low density lipoprotein (LDL) cholesterol Acute R79.89 Cyst of breast Acute 07/29/11 N60.09 Deviated nasal septum Acute 09/20/13 J34.2 History of arthroscopy of knee Acute Z98.890 Hypertrophy of nasal turbinates Acute 09/20/13 J34.3 Sialoadenitis Acute 10/18/13 K11.20 Gastro-esophageal reflux Acute K21.9 Depression Acute F32.9 Allergic rhinitis Acute 10/27/13 J30.9 Allergic fungal sinusitis Acute 04/12/13 J30.89, B49 Medical History Medical History Snoring Surgical History Surgical History H/O reconstruction of anterior cruciate ligament tear 01/03/14 LR- RIGHT KNEE; 03/27/15 DR. JARVIS;RIGHT KNEE Tobacco Smoking/Tobacco Use Status: Former Tobacco Use Passive smoking exposure: Yes Alcohol Alcohol Intake: current Alcohol intake frequency: a few times a month Alcohol type: wine Substance Use Substance use: Never Substance use type: does not use Vital Signs and Lab Results Vital Signs Most Recent Vital Signs in EMR: Temp Pulse Resp BP Pulse Ox 36.9 C 79 18 131/77 94 02/01/25 10:25 02/01/25 10:25 02/01/25 10:25 02/01/25 10:25 02/01/25 10:25 Lab Results Complete Blood Count: WBC, (4.4-10.8) 7.69 10^3/uL 01/28/25, 12:05 RBC, (3.93-5.22) 4.70 10^6/uL 01/28/25, 12:05 Hgb, (11.2-15.7) 14.0 g/dL 01/28/25, 12:05 Hct, (36.0-46.0) 42.4 % 01/28/25, 12:05 Plt Count, (130-400) 285 10^3/uL 01/28/25, 12:05 Complete Metabolic Panel: Sodium, (136-145) 141 mmol/L 01/28/25, 12:05 Potassium, (3.5-5.1) 3.9 mmol/L 01/28/25, 12:05 Chloride, (98-107) 105 mmol/L 01/28/25, 12:05 Carbon Dioxide, (20.0-31.0) 28.8 mmol/L 01/28/25, 12:05 BUN, (9-23) 11 mg/dL 01/28/25, 12:05 Creatinine, (0.55-1.02) 0.83 mg/dL 01/28/25, 12:05 Est GFR (CKD-EPI 2020), (mL/min/1.73m2) 69.79 01/28/25, 12:05 Calcium, (8.3-10.6) 9.0 mg/dL 01/28/25, 12:05 Glucose, (74-106) 85 mg/dL 01/28/25, 12:05 Anesthesia Assessment and Plan Anesthesia History Personal History: PONV Family History: No Family History of Anesthesia Complications Exercise Tolerance Exercise Tolerance: Metabolic Equivalents>4 Cardiac & Pulmonary Exam Cardiac Exam: Normal S1/S2 Heart Sounds Pulmonary Exam: Clear Bilateral Breath Sounds Implantable Cardiac Device Does patient have a Pacemaker or an ICD?: No Airway Exam Known Difficult Airway: No Mallampati Class: 3 Mouth Opening: Narrow (< 3cm) Thyromental Distance: Less than 3 cm Neck Range of Motion: Full ROM Neck Circumference: Thick Teeth Condition: Normal Dentition ASA Classification ASA Score: ASA 3 Emergency Case?: No NPO Status NPO Status: NPO Clears >2 hours, Solids >8 hours Anesthesia Plan Resuscitation Status: Full Code Anesthesia Technique: Spinal Anesthesia Airway Planned: Natural Airway Pain Management: Surgeon and patient request nerve block Monitors Used: Standard Monitors Preoperative Comments:: 59 yo for TKA. Sig PMHx: HTN (no meds), JULIA (CPAP), GERD (famotidine, omeprazole. Takes both, well controlled), lumbar spondylosis, shoulder pain with numbness (able to put arms out to her side for surgical position without issues), depression, BMI 45 (semaglutide - last dose 01/06). Former smoker, occ EtOH. ECG: sinus. Previous Anes: PONV (scop patch ordered, has used in past)
--- NOTE | 2025-02-01 07:12 | PDOC.DSDIS_ITS ---
Date of service: 02/01/25 Discharge Plan Disposition Patient Disposition: Home Condition: Good Discharge Details Reason For Visit: Right knee DJD Attending Provider: Huey Thomson Primary Care Provider: Ibrahima Perez Home Meds and New Rx's Prescriptions: New celecoxib [Celebrex] 200 mg capsule 200 mg PO BID PRNQty: 60 0RF Rx Instructions: Take one tablet twice daily for pain and inflammation aspirin 81 mg tablet,delayed release (DR/EC) 81 mg PO BID 30 Days Qty: 60 0RF acetaminophen 500 mg tablet 1,000 mg PO Q8H PRN Qty: 90 0RF Rx Instructions: Take two tablets up to every 8 hours as needed for pain dexamethasone 4 mg tablet 4 mg PO DAILY Qty: 2 0RF Rx Instructions: Take one tablet once daily for two days docusate sodium [Colace] 100 mg capsule 100 mg PO BID Qty: 28 0RF gabapentin 300 mg capsule 300 mg PO QHS Qty: 14 0RF Rx Instructions: Take one tablet at bedtime oxycodone 5 mg tablet 5 mg PO Q4H PRNQty: 18 0RF Rx Instructions: Take one tablet up to every 4 hours as needed for severe postoperative pain Continued olopatadine 0.1 % drops 1 drp ophthalmic (eye) BID PRN (Reason: allergic symptoms) Qty: 5 12RF bupropion HCl 150 mg tablet sustained-release 12 hr 150 - 300 mg PO BID Qty: 270 3RF Rx Instructions: take 2 tablets in am and one tablet pm omeprazole 40 mg capsule,delayed release(DR/EC) 40 mg PO DAILY Qty: 90 3RF semaglutide 2.4 mg/0.3 mL syringe 2.4 mg subcut QWEEK Qty: 2 12RF Rx Instructions: Concentration: Cyanocobalamin 0.5mg/Semaglutide 1mg/mL Semaglutide and cyanocobalamin for compounding. Patient requires additional drug component to decrease risk of side effects of fatigue Week 1-4: Inject 0.25mL (25 syringe units) once weekly Week 5-8: Inject 0.5mL (50 syringe units) once weekly Week 9-12: Inject 1mL (100 syringe units) once weekly fexofenadine 180 mg tablet 180 mg PO DAILY Qty: 90 3RF montelukast [Singulair] 10 mg tablet 10 mg PO DAILY Qty: 90 1RF famotidine [Pepcid] 20 mg tablet 20 mg PO BID Qty: 180 4RF Discharge Instructions Additional Instructions: Total Knee Discharge Instructions Activity: The most important activity is to walk and to work on gentle motion (both flexion and extension). You should try to take short walks a few times a day. It is important that when resting you work on keeping the knee straight. Avoid putting a pillow behind the knee as this will encourage flexion. Work on range of motion exercises as provided by Physical Therapy. - Start outpatient physical therapy within 2 weeks. - You should wear the ODESSA hose on both legs for 2 weeks. You may remove these at night. You may also use any compression sock in place of the ODESSA hose. - Utilize [employer] to review exercises, see videos on exercises and obtain basic information pertaining to your surgery and your recovery. Dressing: Remove the Shane wrap by 2 days after your surgery and put on the ODESSA stocking given to you from the hospital. Keep the surgical dressing (underneath the SHANE wrap) in place for at least one week. After the first week it may be removed and replaced with light gauze and tape or nothing. The wound and dressing may get wet after 3 days but avoid soaking the dressing or otherwise it will need to be changed. Many people prefer covering the dressing with cling wrap (saran wrap) to minimize it from getting soaked. If it gets wet, just pat dry. If it starts to peel off then it will need to be changed. Medications: - You should take Tylenol and anti-inflammatory Celebrex as your primary pain control medications. If the Celebrex is too expensive or not covered, please call the office for another alternative (Advil/Ibuprofen or Naproxen/Aleve) - You have been prescribed a stronger pain medication Oxycodone for breakthrough pain, take as needed as prescribed. - You take a stomach acid reduction agent Omeprazole at baseline - continue with this medication to help reduce stomach acid and reflux. - You have been prescribed Gabapentin to take at night for restlessness and nerve pain. - You will be taking Aspirin 81mg twice a day for DVT prevention unless instructed otherwise. - You have also been prescribed Decadron to take to control post-operative nausea and pain. You will start this tomorrow. - If you have constipation you should take Colace (which has been prescribed) or Miralax (which is available [id number]). It takes most people 3-4 days to have a bowel movement. Follow-up: 2 weeks If you have any acute concerns or questions, please do not hesitate to contact the office at [phone]. You may contact Dr. Thomson with any questions after hours through the hospital at [phone] or on his cell phone at [phone]. Stand Alone Forms: Portal Information Referrals: Huey Thomson MD [ [facility] STAFF PHYSICIAN, Orthopaedic Surgical] Equipment/Supplies: Walker Activity:: Elevate Remove Dressings/Wound Care:: Do Not Remove Shower/Bathe:: Cover Diet:: As Tolerated Discharge Orders Discharge Orders: Discharge Order (Routine); Ordered 02/01/25 Ordered By: Maura Wilson
[2025-02-01] MEDS: Gabapentin 300 MG CAP PO (10:15)
[2025-02-01] MEDS: Celecoxib 200 MG CAP 400 MG PO (10:15)
[2025-02-01] MEDS: Acetaminophen 500 MG TAB 1000 MG PO (10:16)
[2025-02-01] MEDS: Lactated Ringers 1,000 ML 80 ML IV (10:40)
--- NOTE | 2025-02-01 11:11 | W.PM.OP ---
Operative Note Operative Note PRE-OP DIAGNOSIS: Right Knee Osteoarthritis POST-OP DIAGNOSIS: same PROCEDURE: Right Total Knee Replacement SURGEON: Huey Thomson SAND OPERATOR: Maura Wilson ANESTHESIA TYPE: Spinal Refer to Anesthesia Record ESTIMATED BLOOD LOSS: 100 PATHOLOGY: none sent TOURNIQUET TIME: 0 COMPLICATIONS: None Patient was transported to: PACU Patient's condition: stable Implants: 1. Depuy Attune Cementless Cruciate Retaining Femoral Component, Size 6 2. Depuy Attune Cementless Fixed Bearing Tibial Component, Size 5 3. Depuy Attune 6x8mm CR/FB Poly 4. Depuy Attune Patellar Component, Size 35mm Indications: I have seen Fara in clinic for symptoms of knee arthritis, confirmed with radiographic findings. She has exhausted nonoperative methods and was having significant limitations in daily function and desired better function and less pain. I discussed the technical details of a knee replacement. I explained the risks of the procedure to include, but not limited to, bleeding, infection, pain, stiffness, fracture, damage to nerves and vessels, damage to muscles and tendons, loosening, need for repeat procedure, blood clot and cardiopulmonary demise. Despite these risks, Fara elected to proceed. Findings: There was significant signs of arthritis throughout the knee involving all 3 compartments. Procedure Description: Fara was greeted in the preoperative holding area where the correct side was identified and marked. The consent was reviewed with the patient and signed. The history and physical was updated. All questions were answered. Preoperative medications were administered: Acetaminophen 1000mg, Celebrex 400mg, and Gabapentin 300mg. An adductor canal block was then administered by the anesthesia team in the DSU. She was taken back to the operating room. A spinal anesthestic was then administered. The patient was placed into the supine position on the operating room table. Posts were placed for positioning during the procedure. All bony prominences were well padded. Prophylactic antibiotics in the form of Cefazolin were administered. 1g of Tranxemic Acid was given intravenously within 30 minutes of incision. The right leg was then prepped with Chloraprep and draped in a standard fashion with impervious stockinette. A second prep with Chloraprep was performed prior to application of Iodine impregnated skin protection. A timeout to confirm correct identity, side and site, procedure, allergies, anesthesia, and medical concerns was performed. With the knee in some flexion, a midline incision was made overlying the knee. Full thickness skin flaps were raised once the extensor mechanism was encountered. These were raised medially and laterally. Any bleeding was controlled with electrocautery. Once the extensor mechanism was fully exposed, a medial parapatellar arthrotomy was performed in a flexed position. All bleeding from the arthrotomy and the geniculate arteries was coagulated. A medial subperiosteal peel was performed with electrocautery to the midcoronal plane. The fat pad was removed while keeping the patellar tendon protected. The anterior distal femur synovium was removed for later visualization. The ACL and PCL were resected and the anterior horn of the lateral meniscus was transected. The knee was then flexed with the patella everted. Large osteophytes from the tibia were removed. Large osteophytes from the femur were removed. Using a step drill, and based on preoperative templating, the femoral canal was entered. This was done with a step drill without any difficulty. The intramedullary distal femoral cut guide was inserted, set to a 6 degree valgus cut and 9mm cut thickness. The distal femoral cut guide was then held in position and pinned. With the soft tissues protected, the distal cut was performed. This was passed over a few times to ensure a planar cut. I then turned attention to the tibia. The extramedullary guide was placed onto the leg. The distal aspect was slid medial to adjust for position of center of ankle and stay in line with shaft of the tibia. Approximately 5 degrees of posterior slope was kept in the proximal cutting guide. The center of the guide was aligned with the PCL. The stylus was used to assess cut thickness. The medial side, most involved side, was set for a 6mm cut, corresponding to 9mm laterally. This was then held in position and pinned into place with 2 additional pins and a cross pin for stability. The medial and lateral collateral ligaments were protected and the cut was performed. With this completed, it was assessed and noted to be of appropriate dimensions. The guide was removed. A spacer block was inserted and the knee was brought into extension. The 7mm spacer block provided full extension, without hyperextension and with stability of both the medial and lateral collateral ligaments was assessed. The pins from the femur and the tibia were then removed. The distal femur was then sized. The anterior stylus was placed onto the lateral ridge of the anterior femur. This indicated a size 6 femur. The external rotation of the guide was adjusted to 3 degrees to match the epicondylar axis, perpendicular to Ita?s line. The 4-in-1 cutting guide was the placed. The posterior medial femur cut was evaluated and appeared of good thickness. The spacer block was inserted underneath the cutting guide and stability was confirmed in 90 degrees of flexion. An marilu wing was used to confirm appropriate position of the anterior cut to avoid notching. This cutting guide was ensured to be flush on the cut surface and then pinned into place with headed pins. While protecting the soft tissues, quad tendon, and collateral ligaments, the anterior and posterior cuts were performed with a saw. The central two pins were removed and the posterior and anterior chamfers were cut next. The notch-cutting guide was placed. This was pinned to lateralize the femoral component as much as possible while keeping it flush on the cut surface. This was then pinned into position. A reciprocating saw was used to make the notch cut. A rasp smoothed the cut surfaces. The medial and lateral menisci were removed. A trial femoral component was then inserted, impacted down to the cut surfaces, and the lug holes were drilled. A provisional trial tibial component was placed and the knee was brought through range of motion. The polyethylene was trialed until there was good flexion and extension with excellent stability to the medial and lateral collaterals. The patella was tracking without thumbs. A size 8mm polyethylene component provided the best range of motion and stability with less than 2mm gapping with medial and lateral stress and full extension without significant hyperextension. The tibial cut surface was fully exposed. The tibia was then sized as a 5. The tibia had been previously marked during trialing to correspond to the center of the tibial component to help with rotation. The trial was aligned to this crystal, approximately rotated to the medial 1/3rd of the tibial tubercle. The trial was pinned into place. The tibia was prepared with a reamer and a keel punch and lug holes. The knee was then brought into extension and the patella was measured as 22mm. Using the patellar clamp and cut guide, this was resected to a flat surface with at least 13mm of thickness remaining. The size 35mm patella fit the best. This was oriented and then clamped into position. The lugs were drilled. The trial components were removed. The final components were opened on the back table. The periosteal and capsular tissues, especially posteriorly, around the knee were then systematically injected with a periarticular cocktail consisting of 246mg of Ropivacaine, 0.5mg of Epinephrine, 0.08mg of Clonidine, and 30mg of Ketorolac, diluted to 100cc. On the back table, with the implants opened. The cement was mixed. One batch of high viscosity cement was prepared with vacuum assistance. After the cement was ready a small amount was placed on the cut surface of the patella and the patellar button was clamped into position and held. The cementless knee components were placed. Starting with the tibial component, the tibia was subluxed anteriorly and the lug holes of the component were lined up. The tibia was then impacted with an impactor and mallet until the tibial component was in contact with the tibia. Then, the femoral component was inserted. The lug holes were aligned and the component was impacted into position. The final polyethylene component was inserted. The knee was irrigated with Surgiphor Betadine solution. This was allowed to sit in the knee for 3 minutes and then it was irrigated out with saline. After the cement had finally cured, approximately 15min, the clamp was removed from the patella and the knee was taken through range of motion. The patella was tracking with a no-thumbs technique. A complete synovectomy was performed around the periphery of the patella. The capsule was then reapproximated with a No. 1 Vicryl at multiple locations. The capsule was finally closed with a No. 2 Stratafix, barbed suture. Deep tissues were then reapproximated with 0 Vicryl and 2-0 Vicryl. The skin was closed with a running 3-0 Monocryl in a subcuticular fashion. This was reinforced with skin glue. A Mepilex silver dressing was applied along with a [id number] GAURAV wrap. A CryoCuff was applied. Fara was transferred to the hospital bed without difficulty an suffering no apparent complication. She has a good prognosis. Physical therapy will start today and without restrictions, weight-bearing as tolerated. Aspirin 81mg BID will be used for DVT prophylaxis. Date of Procedure: 02/01/25
[2025-02-01] MEDS: ceFAZolin 3,000 MG in Normal Saline 100 ML 200 MG IV (11:22)
[2025-02-01] MEDS: TRANEXAMIC ACID/SOD. CHL. 1,000 MG/100 ML BAG 600 MG IVPB (11:24)
--- NOTE | 2025-02-01 11:40 | W.ANESNERVE ---
Nerve Block Single Injection Procedure Date and Time Date Performed: 02/01/25 Procedure Start: 11:04 Location Where Procedure Performed Procedure Location: Day Surgery Unit Reason Performed: Postoperative Analgesia Requesting Provider: Huey Thomson Timeout Performed Timeout Performed: Yes Monitoring Used ECG, Blood Pressure and SpO2 Sterility Sterility: Hand Hygiene, Surgical Cap, Surgical Mask, Sterile Gloves and Chlorhexidine Sedation Given During Procedure Sedation Given (Indicate Dose Given): Versed IV Dose:: 2 mg Patient Mental Status Patient Mental Status: Sedate with meaningful communication Nerve Block 1st Nerve Block: Laterality: Right Block Type: Adductor Canal Ultrasound Image Saved?: Yes Needle / Catheter Used: 120mm SonoPlex II Local Anesthetic Bolus (Indicate Dose Given): Bupivacaine 0.25% Dose:: 12 mL Additives (Indicate Dose Given): None Ultrasound: Sterile probe cover and gel used Nerve Stimulator: Supplement to Ultrasound use and No twitch or parasthesia noted < 0.5 mA Paresthesia: None Procedure Tolerated: No Complications Procedure Outcome: Successful Performed By: Daryn Medina
[2025-02-01] MEDS: ROPIvacaine/EPI/CLONIDINE/KET 50 ML SYRINGE IJ (11:46)
[2025-02-01] MEDS: HYDROmorphone 2 MG/ML SYR IVP ×4 (13:25→14:15)
[2025-02-01] MEDS: Tranexamic Acid 650 MG TAB 1300 MG PO (14:38)
[2025-02-01] MEDS: oxyCODONE 5 MG TAB PO (14:38)
--- NOTE | 2025-02-01 14:47 | W.ANESPOSTOP ---
Postoperative Evaluation Date, Time and Location Date Performed: 02/01/25 Time Performed: 11:00 Patient Location: PACU Vital Signs Most Recent Imported Vital Signs: Most Recent Vital Signs Temp Pulse Resp BP Pulse Ox 36.8 C 81 20 128/81 94 02/01/25 14:24 02/01/25 14:24 02/01/25 14:24 02/01/25 14:24 02/01/25 14:24 Pain Score Most Recent Pain Score: Most Recent Pain Score Pain Level 4 02/01/25 14:24 Assessment Mental Status: Awake (Alert & Oriented to Patient Baseline) Airway and Respiratory Function: Patent airway with normal (patient baseline) respiratory exam Cardiovascular Function: Hemodynamically Stable Hydration Status: Adequately Hydrated Nausea & Vomiting: No Nausea or Vomiting Pain: Pain is tolerable per patient Peripheral Nerve Block: Regional nerve block not resolved at time of post operative discharge
--- NOTE | 2025-02-01 15:23 | IN_ITS ---
PT Notes Visit Reasons: Right knee DJD Physical Therapy Day Surgery Initial Evaluation Date: 02/01/2025 Referring Doctor: MARYELLEN Moreau PT Orders: PT CONSULT: S/P Ortho Srugery Precautions: WBAT through R LE with AD. Patient Profile/Admitting Diagnosis: Fara is a 59-year-old female with degenerative joint disease of the R knee and is S/P R knee total arthroplasty on postoperative day 0. PMHX: All Active Problems (Updated 11/09/24 @ 14:37 by Alia Peres NP) Asymmetrical sensorineural hearing loss (Acute) Decreased hearing (Acute) Difficulty losing weight (Acute) Elevated blood pressure reading without diagnosis of hypertension (Acute) Closed T12 fracture (Acute) Left hip pain (Acute) Arthralgia (Acute) Sleep apnea (Acute) Left shoulder pain (Acute) Lumbosacral spondylosis without myelopathy (Acute) Traumatic arthritis of right knee (Acute) DEPO MEDROL 02/02/24 Internal derangement of left knee (Acute) Facet arthropathy, lumbar (Acute) Low back pain (Acute) Bilateral knee pain (Acute) High blood sugar (Acute) High serum low density lipoprotein (LDL) cholesterol (Acute) Cyst of breast (Acute 07/29/11) Deviated nasal septum (Acute 09/20/13) History of arthroscopy of knee (Acute) Hypertrophy of nasal turbinates (Acute 09/20/13) Sialoadenitis (Acute 10/18/13) Gastro-esophageal reflux (Acute) Depression (Acute) Allergic rhinitis (Acute 10/27/13) Allergic fungal sinusitis (Acute 04/12/13) allergy injections Medical History Snoring Surgical History H/O reconstruction of anterior cruciate ligament tear 01/03/14 [facility]- RIGHT KNEE; 03/27/15 DR. JARVIS;RIGHT KNEE Social History/Home Situation: Will have son and friends who can help her out at home as she recovers. Independent with all aspects of ADLs prior to surgery although was having increasing difficulty with mobility performance due to worsening arthritis. Equipment Owned/DME: [facility] Subjective: Teary and hurting but was willing to work with PT through her pain by going slow. Initially was lightheaded when she sat up at edge of bed but was feeling better after walking. Objective: General Observation: GAURAV wraps to R LE. Cryocuff to R knee. Mental Status: A and O x 4 Pain: 9/10 at rest that subsided to 4/10 with mobility performance ROM: Right Lower Extremity: Hip flexion WFL. Hip abduction WFL. Knee flexion 20- 100 degrees. Knee extension -20 degrees. Ankle dorsiflexion WFL. Ankle plantarflexion WFL. Left Lower Extremity: Hip flexion WFL. Hip abduction WFL. Knee flexion WFL. Ankle dorsiflexion WFL. Ankle plantarflexion WFL. Strength: Right Lower Extremity: Hip flexors 5/5. Hip abductors 5/5. Knee flexors 3-/5. Knee extensors 3-/5. Ankle dorsiflexors 5/5. Ankle plantarflexors 5/5. Left Lower Extremity:Hip flexors 5/5. Hip abductors 5/5. Knee flexors 5/5. Knee extensors 5/5. Ankle dorsiflexors 5/5. Ankle plantarflexors 5/5. Sensation: Intact as to pain and light pressure in B LE Bed Mobility/Transfers: Minimal cueing provided for use of B hands as needed for support, movement sequence, AD management, and posture to reduce fall risk and minimize pain report Supine to sit stand by assist pulling on the bed rail Sit to stand contact guard assist with FWW Stand to sit stand by assist with use of B hands for support onto arms rests Bed to chair stand by assist Gait: 150 feet with contact guard assist using the front-wheeled walker with step-to gati pattern. Pain level subsided to 4/10 with weight bearing and movement. Minimal verbal cues were given for correct limb movement sequence, efficient weight distribution, AD management and posture. No LOB. No SOB. Denied headache and chest pain. Lightheadedness that started early on resolved. Balance: Static Sitting: Normal Dynamic Sitting: Good Static Standing: Fair Dynamic Standing: Fair Special Tests: Mobility Limitations Standardized Measure [facility] 6 clicks Basic Mobility Inpatient Short Form: Raw Score: 19 CMS Score: 42% deficit Informed Consent/Education: Patient instructed in purpose of PT consult. Packet containing TKA exercise protocol has been given to patient. Education and training on initial set of exercises that can be done at home have been completed with patient. Trained patient with correct performance of exercises below to maximize motor control, joint flexibility, soft tissue extensibility of the R knee musculature: Access Code: [email or web address] URL: [email or web address] Date: 02/02/2025 Prepared by: Carmen Ferrer Exercises - Supine Quad Set - 1 x daily - 7 x weekly - 1 sets - 10 reps - 5 hold - Supine Heel Slide - 1 x daily - 7 x weekly - 1 sets - 10 reps - 5 hold - Supine Ankle Pumps - 1 x daily - 7 x weekly - 1 sets - 10 reps - 5 hold - Small Range Straight Leg Raise - 1 x daily - 7 x weekly - 1 sets - 10 reps - 5 hold --mild extensor lag, about 20 degrees, noted on the operative side - Seated April - 1 x daily - 7 x weekly - 1 sets - 10 reps - 5 hold Assessment: Fara was able to work slowly through her pain complaint in the operative knee as Nurse Erna was able to premedicate her with Oxycodone. She will have caregiver/family support at home. Patient required the use of a front-wheeled walker for all mobility ADL performance. Patient presents with clinical signs and symptoms consistent with current/admitting diagnoses that have resulted to mobility limitations, gait instability, generalized weakness, and impairment of motor control as demonstrated by the following impairment level findings: 1. Decreased strength to left R major muscle groups 2. Impaired standing balance 3. Limitation of joint range of motion in R knee Impairments are contributing to the following functional limitations: 1. Inability to safely ambulate without assistive device 2. Increase completion time for mobility ADL performance 3. Increased fall risk Patient is assessed as a 20819 moderate complexity based on the following: History: 59-year-old female with impairment level findings, functional limitations, and past medical history as indicated above Examination: Demonstrable impairment in strength, balance, and mobility level with underlying impairments and functional limitations as documented above Presentation: Evolving Decision Makin moderate complexity Goals: N/A. PT evaluation and 1-2 treatment sessions only for functional mobility training using recommended AD and for HEP instruction. Plan of Care/Treatment Plan: N/A. PT evaluation and 1-2 treatment session only for functional mobility train ing using recommended AD and for HEP instruction. DISCHARGE RECOMMENDATIONS: Home when medically cleared by orthopedic surgeon. Recommend outpatient PT services in order to optimize functional mobility outcomes and facilitate return to independent community ambulation without an assistive device. TREATMENT CODE/TIME: 25804 x 20 minutes for 1 unit, 17739 x 16 minutes for 1 unit (15:23-15:59). Thank you for the opportunity to participate in the care of this patient. Carmen Ferrer PT, DPT, CLT [facility] [place], [place]
== END 2025-02-01 16:24 | disposition home or self-care (01) ==
LOC: SUR 09:54
PROVIDERS: PCP Nurse Practitioner Family; Visit Provider Student in an Organized Health Care Education/Training Program
PROC: (CPT 27447; principal; 2025-02-01 12:15)
DX: M17.11 Unilateral primary osteoarthritis, right knee (principal); G89.18 Other acute postprocedural pain
CPT/HCPCS: 27447; 64447; 97162; 97530; C1776; J0665; J0690; J1100; J1171; J2250; J2371; J2405; J2704

== ENCOUNTER 2025-02-14 12:09 | Outpatient (CLI) | payer MEDICAID, SELFPAY ==
--- NOTE | 2025-02-14 10:45 | DI.RAD_ITS ---
Exam(s) XR STANDING ALIGNMENT XR KNEE RT 1V EXAM: XR STANDING ALIGNMENT and XR knee RT 1 V CLINICAL HISTORY: 1ST POST OP S/P R TKA. TECHNIQUE: 2D digital imaging was performed. Five images were obtained. COMPARISON: CR XR STANDING ALIGNMENT from 07/05/2024 CR XR KNEE RT 2V AP,LAT from 07/05/2024 FINDINGS: BONES: The hips are poorly visualized due to the patient body habitus. There has been interval placement of a right total knee arthroplasty. There are no suspicious lucencies seen around the orthopedic hardware. The patient has had a prior right ACL repair. The screw in the proximal tibia has fractured. This appears to have been secondary to placement of the tibial component of the arthroplasty. The left knee is well maintained. The ankles are well maintained.There is no significant leg length discrepancy. SOFT TISSUE: Normal. IMPRESSION: Interval placement of a right total knee arthroplasty which appears in good position. DATA REPOSITORY: RADIATION DOSE DELIVERED:
== END 2025-02-14 12:10 | disposition home or self-care (01) ==
LOC: DIORS 12:10
PROVIDERS: PCP Nurse Practitioner Family; Visit Provider Student in an Organized Health Care Education/Training Program
DX: Z96.651 Presence of right artificial knee joint (principal)
CPT/HCPCS: 73560; 77073